=== PATIENT | male | born 1940 | race Caucasian/White ===

== ENCOUNTER 2017-12-27 00:40 | Emergency (ER) | payer MEDICARE ==
[2017-12-27 01:30] LABS: CREATININE 1.3 mg/dL (0.5-1.5); POTASSIUM 3.7 mmol/L (3.5-5.1)
[2017-12-27 01:34] LABS: ALBUMIN 3.8 g/dL (3.5-5.0); BILIRUBIN,TOTAL 0.5 mg/dL (0.2-1.0); TOTAL PROTEIN, SERUM 7.7 g/dL (6.0-8.3)
[2017-12-27 01:43] LABS: EOSINOPHILS % (AUTO) 6.7 % (0.0-8.0); HEMATOCRIT 36.8 % (42-54); LYMPHOCYTES % (AUTO) 36.9 % (21.0-51.0); MEAN CORPUSCULAR HEMOGLOBIN 28.3 pg (27.0-33.0); MEAN CORPUSCULAR HGB CONC 33.3 g/dL (32.0-36.0); MONOCYTES % (AUTO) 8.4 % (3.0-13.0); PLATELET COUNT (AUTO) 210 K/uL (130-400); RED BLOOD CELL COUNT(AUTO) 4.32 MIL/uL (4.50-6.20); RED CELL DISTRIBUTION WIDTH 14.7 % (11.0-15.5); WHITE BLOOD COUNT (AUTO) 9.2 K/uL (4.8-10.8)
[2017-12-27 03:07] LABS: APPEARANCE,URINE Cloudy (CLEAR); BILIRUBIN,URINE Negative (NEGATIVE); COLOR,URINE Yellow (YELLOW); GLUCOSE, URINE (UA) Negative (NEGATIVE); KETONES,URINE Negative (NEGATIVE); LEUKOCYTE ESTERASE ,URINE Large (NEGATIVE); NITRATE,URINE Positive (NEGATIVE); OCCULT BLOOD,URINE Trace (NEGATIVE); PROTEIN,URINE Negative (NEGATIVE); UROBILINOGEN,URINE 0.2 mg/dL (0.2-1.0)
[2017-12-27 03:12] LABS: BACTERIA,URINE Many /HPF (None Seen); RBC,URINE 0-1 /HPF (0-1); WBC,URINE TNTC /HPF (0-1)
[2017-12-27 03:14] LABS: AMPHET/METH SCREEN,URINE NEGATIVE (NEGATIVE); BARBITURATE SCREEN, URINE NEGATIVE (NEGATIVE); BENZODIAZEPINES SCREEN,URINE POSITIVE (NEGATIVE); CANNABINOID SCREEN,URINE NEGATIVE (NEGATIVE); COCAINE SCREEN,URINE NEGATIVE (NEGATIVE); OPIATE SCREEN,URINE NEGATIVE (NEGATIVE); PHENCYCLIDINE SCREEN,URINE NEGATIVE (NEGATIVE)
[2017-12-27] MEDS ORDERED: CEFTRIAXONE SODIUM 1 GM ONE (03:28)
[2017-12-27] MEDS ORDERED: SODIUM CHLORIDE 0.9% 50 ML IV ONE (03:28)
== END 2017-12-27 04:35 | disposition home or self-care (01) ==
LOC: EDH 00:40
DX: N30.00 Acute cystitis without hematuria (principal); R53.1 Weakness; R06.00 Dyspnea, unspecified; R20.2 Paresthesia of skin; F41.9 Anxiety disorder, unspecified; I25.10 Atherosclerotic heart disease of native coronary artery without angina pectoris; E78.5 Hyperlipidemia, unspecified; M19.90 Unspecified osteoarthritis, unspecified site; Z98.890 Other specified postprocedural states; Z91.048 Other nonmedicinal substance allergy status
CPT/HCPCS: 36415; 71045; 80053; 80305; 81001; 83690; 83735; 84484; 85025; 87077; 87088; 87186; 93005; 96374; 99285; J0696

== ENCOUNTER 2017-12-27 16:21 | Emergency (ER) | payer MEDICARE ==
[2017-12-27 17:30] LABS: EOSINOPHILS % (AUTO) 3.5 % (0.0-8.0); HEMATOCRIT 35.2 % (42-54); LYMPHOCYTES % (AUTO) 24.1 % (21.0-51.0); MEAN CORPUSCULAR HEMOGLOBIN 28.6 pg (27.0-33.0); MEAN CORPUSCULAR VOLUME 83.9 fL (79-99); MONOCYTES % (AUTO) 8.4 % (3.0-13.0); NUCLEATED RED BLOOD CELLS 0.1 % (0.0-0.19); PLATELET COUNT (AUTO) 224 K/uL (130-400); RED BLOOD CELL COUNT(AUTO) 4.19 MIL/uL (4.50-6.20); RED CELL DISTRIBUTION WIDTH 14.5 % (11.0-15.5); WHITE BLOOD COUNT (AUTO) 8.9 K/uL (4.8-10.8)
[2017-12-27 17:53] LABS: INR 0.97 (0.85-1.15); PARTIAL THROMBOPLASTIN TIME 27.6 SEC (26.3-35.5); PROTHROMBIN TIME 10.2 SEC (9.6-11.6)
[2017-12-27 17:55] LABS: APPEARANCE,URINE Cloudy (CLEAR); BILIRUBIN,URINE Negative (NEGATIVE); COLOR,URINE Yellow (YELLOW); GLUCOSE, URINE (UA) Negative (NEGATIVE); KETONES,URINE Negative (NEGATIVE); LEUKOCYTE ESTERASE ,URINE Large (NEGATIVE); NITRATE,URINE Negative (NEGATIVE); OCCULT BLOOD,URINE Trace (NEGATIVE); PH,URINE 5.5 (5.0-8.0); PROTEIN,URINE Negative (NEGATIVE); UROBILINOGEN,URINE 0.2 mg/dL (0.2-1.0)
[2017-12-27 18:07] LABS: BACTERIA,URINE Moderate /HPF (None Seen); RBC,URINE 0-1 /HPF (0-1); WBC,URINE TNTC /HPF (0-1)
[2017-12-27 18:20] LABS: POTASSIUM 4.4 mmol/L (3.5-5.1)
[2017-12-27 18:26] LABS: ALBUMIN 3.6 g/dL (3.5-5.0); BILIRUBIN,TOTAL 0.4 mg/dL (0.2-1.0); TOTAL PROTEIN, SERUM 7.5 g/dL (6.0-8.3)
== END 2017-12-27 18:41 | disposition home or self-care (01) ==
LOC: EDH 16:21
DX: E86.0 Dehydration (principal); N39.0 Urinary tract infection, site not specified; R00.2 Palpitations; F41.9 Anxiety disorder, unspecified; I25.10 Atherosclerotic heart disease of native coronary artery without angina pectoris; E78.5 Hyperlipidemia, unspecified; I10 Essential (primary) hypertension; M19.90 Unspecified osteoarthritis, unspecified site; Z98.890 Other specified postprocedural states; Z91.048 Other nonmedicinal substance allergy status
CPT/HCPCS: 36415; 80053; 82550; 85025; 85610; 85730; 93005

== ENCOUNTER 2017-12-28 22:03 | Observation (INO) | payer MEDICARE ==
[~2017-12-28] VITALS: Ht 193 cm; Wt 117.5 kg
[2017-12-28 22:48] LABS: BASOPHILS % (AUTO) 0.9 % (0.0-5.0); EOSINOPHILS % (AUTO) 5.2 % (0.0-8.0); HEMATOCRIT 34.6 % (42-54); LYMPHOCYTES % (AUTO) 28.7 % (21.0-51.0); MEAN CORPUSCULAR HEMOGLOBIN 28.2 pg (27.0-33.0); MEAN CORPUSCULAR HGB CONC 33.5 g/dL (32.0-36.0); MEAN CORPUSCULAR VOLUME 84.3 fL (79-99); NEUTROPHILS % (AUTO) 57.2 % (40.0-77.0); PLATELET COUNT (AUTO) 226 K/uL (130-400); RED CELL DISTRIBUTION WIDTH 14.7 % (11.0-15.5); WHITE BLOOD COUNT (AUTO) 8.9 K/uL (4.8-10.8)
[2017-12-28 23:00] LABS: CREATININE 1.1 mg/dL (0.5-1.5); POTASSIUM 3.7 mmol/L (3.5-5.1)
[2017-12-28 23:04] LABS: ALBUMIN 3.6 g/dL (3.5-5.0); BILIRUBIN,TOTAL 0.4 mg/dL (0.2-1.0); TOTAL PROTEIN, SERUM 7.3 g/dL (6.0-8.3)
[2017-12-29 00:31] LABS: APPEARANCE,URINE Clear (CLEAR); BILIRUBIN,URINE Negative (NEGATIVE); COLOR,URINE Yellow (YELLOW); GLUCOSE, URINE (UA) Negative (NEGATIVE); KETONES,URINE Negative (NEGATIVE); LEUKOCYTE ESTERASE ,URINE Moderate (NEGATIVE); NITRATE,URINE Negative (NEGATIVE); OCCULT BLOOD,URINE Negative (NEGATIVE); PROTEIN,URINE Negative (NEGATIVE); UROBILINOGEN,URINE 0.2 mg/dL (0.2-1.0)
[2017-12-29 00:46] LABS: BACTERIA,URINE None Seen /HPF (None Seen); MUCUS,URINE Few LPF (None Seen); RBC,URINE None Seen /HPF (0-1); SQUAMOUS EPITHELIAL CELL,UR Rare /HPF (0-2)
[2017-12-29 01:38] VITALS: BP 154/86
[2017-12-29] MEDS ORDERED: TRAZODONE HCL 50 MG TAB PO SCH (02:30)
[2017-12-29] MEDS ORDERED: ASPI-1197 PO (02:32)
[2017-12-29] MEDS ORDERED: PRAV80TA21 PO (02:32)
[2017-12-29] MEDS ORDERED: TAMS-1 PO (02:32)
[2017-12-29] MEDS ORDERED: SPIR25TA6 PO (02:32)
[2017-12-29] MEDS ORDERED: TRAZ150T79 PO (02:32)
[2017-12-29] MEDS ORDERED: METO25TA6 PO (02:32)
[2017-12-29] MEDS ORDERED: DOCU100C33 PO (02:32)
[2017-12-29] MEDS ORDERED: CETI10TA57 PO (02:32)
[2017-12-29] MEDS ORDERED: MIRT45TA83 PO (02:32)
[2017-12-29 03:00] VITALS: BP 161/81
[2017-12-29] MEDS: CEFTRIAXONE SODIUM 1 GM IVP SCH (03:59)
[2017-12-29] MEDS: DEXTROSE 5 %-0.45 % NACL 1,000 ML IV SCH ×2 (04:00→23:45)
[2017-12-29] MEDS ORDERED: MECLIZINE HCL 12.5 MG TABLET PO PRN (07:15)
[2017-12-29 08:00] VITALS: BP 161/92
[2017-12-29] MEDS: ASPIRIN 81MG TAB.CHEW PO SCH (08:57)
[2017-12-29] MEDS: METOPROLOL TARTRATE 25 MG TAB PO SCH ×2 (08:57→22:46)
[2017-12-29] MEDS: SPIRONOLACTONE 25 MG TAB PO SCH (08:57)
[2017-12-29 11:00] VITALS: BP 126/64
[2017-12-29] MEDS ORDERED: LACTULOSE 20 GM/30 ML UDCUP PO PRN (11:00)
[2017-12-29] MEDS ORDERED: CETIRIZINE HCL 5 MG TABLET PO SCH (12:00)
[2017-12-29] MEDS ORDERED: DOCUSATE SODIUM 100 MG CAP PO SCH (12:00)
[2017-12-29] MEDS ORDERED: MIRTAZAPINE 15 MG TABLET PO SCH (12:00)
[2017-12-29 16:30] VITALS: BP 158/89
[2017-12-29 19:05] VITALS: BP 146/82
[2017-12-29] MEDS ORDERED: ALPRAZOLAM 0.5 MG TABLET PO PRN (20:30)
[2017-12-29] MEDS ORDERED: ATORVASTATIN CALCIUM 20 MG TABLET PO SCH (21:00)
[2017-12-29] MEDS ORDERED: TAMSULOSIN HCL 0.4 MG CAP.ER.24H PO SCH (21:00)
[2017-12-30 00:10] VITALS: BP 141/69
[2017-12-30] MEDS: CEFTRIAXONE SODIUM 1 GM IVP SCH (03:05)
[2017-12-30 04:10] VITALS: BP 137/94
[2017-12-30 08:00] VITALS: BP 152/84
[2017-12-30] MEDS: SPIRONOLACTONE 25 MG TAB PO SCH (09:32)
[2017-12-30] MEDS: ASPIRIN 81MG TAB.CHEW PO SCH (09:32)
[2017-12-30] MEDS: METOPROLOL TARTRATE 25 MG TAB PO SCH (09:32)
[2017-12-30 12:00] VITALS: BP 159/87
== END 2017-12-30 12:49 | disposition home or self-care (01) ==
LOC: EDH 22:03 → EDHIP 12-29 00:53 → 3BH 12-29 01:30 → EDHIP 12-29 01:39 → 3BH 12-29 01:40
PROVIDERS: ADMIT Internal Medicine; ATTEND Internal Medicine
DX: H81.10 Benign paroxysmal vertigo, unspecified ear (principal); E86.0 Dehydration; N39.0 Urinary tract infection, site not specified; E78.5 Hyperlipidemia, unspecified; I25.10 Atherosclerotic heart disease of native coronary artery without angina pectoris; I10 Essential (primary) hypertension; F41.1 Generalized anxiety disorder
CPT/HCPCS: 36415; 70450; 71045; 80053; 82550; 83605; 84484; 85025; 87040; 87088; 93005; 96361; 96374; 96375; 97116; 97161; 99285; A4218 ×2; G0378 ×36; G8978; G8979; G8980; G8981; G8982; G8983; J0696 ×2; J7042 ×2

== ENCOUNTER → 2018-09-17 | Outpatient (CLI) | payer MEDICARE ==
[~2018-09-17] MED LIST: ASPI-1197 PO; CETI10TA57 PO; DOCU100C33 PO; METO25TA6 PO; MIRT45TA83 PO; PRAV80TA21 PO; SPIR25TA6 PO; TAMS-1 PO; TRAZ150T79 PO
== END | disposition home or self-care (01) ==
LOC: RAH 09:17
PROVIDERS: ATTEND Internal Medicine
DX: I11.0 Hypertensive heart disease with heart failure (principal); I50.23 Acute on chronic systolic (congestive) heart failure; I35.8 Other nonrheumatic aortic valve disorders; I25.10 Atherosclerotic heart disease of native coronary artery without angina pectoris
CPT/HCPCS: 93306

== ENCOUNTER 2018-09-21 18:59 | Emergency (ER) | payer MEDICARE ==
[2018-09-21 19:40] LABS: BASOPHILS % (AUTO) 1.1 % (0.0-5.0); HEMATOCRIT 38.6 % (42-54); MEAN CORPUSCULAR HGB CONC 33.8 g/dL (32.0-36.0); MEAN CORPUSCULAR VOLUME 85.9 fL (79-99); MONOCYTES % (AUTO) 7.6 % (3.0-13.0); NEUTROPHILS % (AUTO) 65.3 % (40.0-77.0); PLATELET COUNT (AUTO) 233 K/uL (130-400); RED BLOOD CELL COUNT(AUTO) 4.49 MIL/uL (4.50-6.20); WHITE BLOOD COUNT (AUTO) 10.6 K/uL (4.8-10.8)
[2018-09-21 19:59] LABS: CREATININE 1.7 mg/dL (0.5-1.5); POTASSIUM 4.5 mmol/L (3.5-5.1)
[2018-09-21 20:04] LABS: ALBUMIN 3.4 g/dL (3.5-5.0); BILIRUBIN,DIRECT 0.1 mg/dL (0.0-0.3); BILIRUBIN,TOTAL 0.3 mg/dL (0.2-1.0); TOTAL PROTEIN, SERUM 7.2 g/dL (6.0-8.3)
[2018-09-21 20:05] LABS: B-TYPE NATRIURETIC PEPTIDE 22 pg/mL (0-100)
[2018-09-21 22:31] LABS: APPEARANCE,URINE Clear (CLEAR); BILIRUBIN,URINE Negative (NEGATIVE); COLOR,URINE Yellow (YELLOW); GLUCOSE, URINE (UA) Negative (NEGATIVE); KETONES,URINE Negative (NEGATIVE); LEUKOCYTE ESTERASE ,URINE Small (NEGATIVE); NITRATE,URINE Negative (NEGATIVE); OCCULT BLOOD,URINE Negative (NEGATIVE); PH,URINE 5.5 (5.0-8.0); PROTEIN,URINE Negative (NEGATIVE); UROBILINOGEN,URINE 0.2 mg/dL (0.2-1.0)
[2018-09-21 22:56] LABS: BACTERIA,URINE None Seen /HPF (None Seen); RBC,URINE 0-1 /HPF (0-1)
[2018-09-21] MEDS ORDERED: SODIUM CHLORIDE 0.9% 1000ML 1,000 ML IV ONE (23:06)
[2018-09-21] MEDS ORDERED: CEFTRIAXONE SODIUM 1 GM ONE (23:36)
== END 2018-09-22 00:13 | disposition home or self-care (01) ==
LOC: EDH 18:59
DX: T67.5XXA Heat exhaustion, unspecified, initial encounter (principal); N30.00 Acute cystitis without hematuria; R53.1 Weakness; I10 Essential (primary) hypertension; E78.5 Hyperlipidemia, unspecified; M19.90 Unspecified osteoarthritis, unspecified site; I25.10 Atherosclerotic heart disease of native coronary artery without angina pectoris; F41.9 Anxiety disorder, unspecified; Z88.1 Allergy status to other antibiotic agents; Z88.8 Allergy status to other drugs, medicaments and biological substances; X58.XXXA Exposure to other specified factors, initial encounter; Y93.89 Activity, other specified; Y92.89 Other specified places as the place of occurrence of the external cause; Y99.8 Other external cause status
CPT/HCPCS: 36415; 71045; 80048; 80076; 81001; 82550; 83880; 84484 ×2; 85025; 87077; 87088; 87186; 93005 ×2; 96374; 99285; J0696; J7030

== ENCOUNTER → 2018-11-10 | Outpatient (CLI) | payer MEDICARE | END | disposition home or self-care (01) | LOC: OIH 11:00 | PROVIDERS: ATTEND Internal Medicine | DX: J44.9 Chronic obstructive pulmonary disease, unspecified (principal); I70.0 Atherosclerosis of aorta; M47.815 Spondylosis without myelopathy or radiculopathy, thoracolumbar region | CPT/HCPCS: 71046 ==

== ENCOUNTER → 2018-11-25 | Outpatient (CLI) | payer MEDICARE ==
[~2018-11-25] MED LIST changes: +ALBUTEROL SULFATE 0.083% 2.5 MG/3 ML INH IH ONE
== END | disposition home or self-care (01) ==
LOC: RESP 10:08
PROVIDERS: ATTEND Internal Medicine
DX: J44.9 Chronic obstructive pulmonary disease, unspecified (principal)
CPT/HCPCS: 94060; 94727; 94729

== ENCOUNTER → 2019-09-16 | Outpatient (CLI) | payer MEDICARE ==
[~2019-09-16] MED LIST changes: -ALBUTEROL SULFATE 0.083% 2.5 MG/3 ML INH IH ONE
== END | disposition home or self-care (01) ==
LOC: RAH 11:44
PROVIDERS: ATTEND Internal Medicine
DX: J84.9 Interstitial pulmonary disease, unspecified (principal); M47.814 Spondylosis without myelopathy or radiculopathy, thoracic region; M40.294 Other kyphosis, thoracic region; I50.9 Heart failure, unspecified
CPT/HCPCS: 71046

== ENCOUNTER → 2020-10-19 | Outpatient (CLI) | payer OTHER | END | disposition home or self-care (01) | LOC: OIH 15:02 | PROVIDERS: ATTEND Internal Medicine | DX: S93.692A Other sprain of left foot, initial encounter (principal); X58.XXXA Exposure to other specified factors, initial encounter; Y93.89 Activity, other specified; Y92.89 Other specified places as the place of occurrence of the external cause; Y99.8 Other external cause status | CPT/HCPCS: 73630 ==

== ENCOUNTER 2021-04-28 18:17 | Observation (INO) | payer OTHER ==
[~2021-04-28] VITALS: Ht 177.8 cm; Wt 90.7 kg
[2021-04-28 20:04] LABS: BASOPHILS % (AUTO) 0.9 % (0.0-5.0); EOSINOPHILS % (AUTO) 8.6 % (0.0-8.0); HEMATOCRIT 33.9 % (42-54); LYMPHOCYTES % (AUTO) 34.9 % (21.0-51.0); MEAN CORPUSCULAR HEMOGLOBIN 28.3 pg (27.0-33.0); MEAN CORPUSCULAR HGB CONC 31.6 g/dL (32.0-36.0); MEAN CORPUSCULAR VOLUME 89.7 fL (79-99); NEUTROPHILS % (AUTO) 44.3 % (40.0-77.0); PLATELET COUNT (AUTO) 181 K/uL (130-400); RED BLOOD CELL COUNT(AUTO) 3.78 MIL/uL (4.50-6.20); WHITE BLOOD COUNT (AUTO) 7.8 K/uL (4.8-10.8)
[2021-04-28 20:18] LABS: CARBON DIOXIDE 29 mmol/L (21-32); CHLORIDE 104 mmol/L (101-111); GLOMERULAR FILTR. RATE CALC 34 mL/min (>60); GLUCOSE,RANDOM 100 mg/dL (70-105); POTASSIUM 4.4 mmol/L (3.5-5.1); SODIUM SERUM 142 mmol/L (136-145); UREA NITROGEN, BLOOD 29 mg/dL (7-18)
[2021-04-28 20:19] LABS: INR 1.05 (0.85-1.15); PROTHROMBIN TIME 11.4 SEC (9.6-11.6)
[2021-04-28 20:22] LABS: ALANINE AMINOTRANSFERASE 29 U/L (12-78); ALBUMIN 3.3 g/dL (3.5-5.0); ASPARTATE AMINOTRANSFERASE 26 U/L (10-37); BILIRUBIN,TOTAL 0.4 mg/dL (0.2-1.0); LIPASE < 50 U/L (114-286); TOTAL PROTEIN, SERUM 7.1 g/dL (6.0-8.3)
[2021-04-28 20:27] LABS: APPEARANCE,URINE CLEAR (CLEAR); BILIRUBIN,URINE NEGATIVE (NEGATIVE); COLOR,URINE YELLOW (YELLOW); GLUCOSE, URINE (UA) NEGATIVE (NEGATIVE); KETONES,URINE NEGATIVE (NEGATIVE); LEUKOCYTE ESTERASE ,URINE LARGE (NEGATIVE); NITRATE,URINE NEGATIVE (NEGATIVE); OCCULT BLOOD,URINE SMALL (NEGATIVE); PROTEIN,URINE NEGATIVE (NEGATIVE); UROBILINOGEN,URINE 0.2 mg/dL (0.2-1.0)
[2021-04-28 20:44] LABS: B-TYPE NATRIURETIC PEPTIDE 68 pg/mL (0-100)
[2021-04-28 20:51] LABS: BACTERIA,URINE Few /HPF (None Seen); MUCUS,URINE Few LPF (None Seen); SQUAMOUS EPITHELIAL CELL,UR Moderate /HPF (0-2)
[2021-04-28] MEDS ORDERED: CEFTRIAXONE 1G VIAL IVP ONE (21:00)
[2021-04-28] MEDS ORDERED: CLINDAMYCIN IVPB 900MG/50ML 50 ML IV ONE ×2 (21:00→21:02)
[2021-04-28] MEDS ORDERED: FUROSEMIDE 20MG VIAL IV ONE (21:00)
[2021-04-28] MEDS ORDERED: FUROSEMIDE 20MG VIAL ONE (21:02)
[2021-04-28] MEDS ORDERED: CEFTRIAXONE 1G VIAL ONE (21:02)
[2021-04-29 01:35] VITALS: BP 118/61
[2021-04-29 03:49] VITALS: BP 146/65
[2021-04-29 05:45] LABS: HEMATOCRIT 34.4 % (42-54); MEAN CORPUSCULAR HEMOGLOBIN 28.6 pg (27.0-33.0); MEAN CORPUSCULAR HGB CONC 32.3 g/dL (32.0-36.0); MEAN CORPUSCULAR VOLUME 88.7 fL (79-99); RED BLOOD CELL COUNT(AUTO) 3.88 MIL/uL (4.50-6.20); WHITE BLOOD COUNT (AUTO) 9.7 K/uL (4.8-10.8)
[2021-04-29 06:07] LABS: ALBUMIN 3.1 g/dL (3.5-5.0); BILIRUBIN,TOTAL 0.3 mg/dL (0.2-1.0); CREATININE 1.8 mg/dL (0.5-1.5); POTASSIUM 3.9 mmol/L (3.5-5.1); TOTAL PROTEIN, SERUM 6.9 g/dL (6.0-8.3)
[2021-04-29] MEDS: FUROSEMIDE 40MG VIAL IVP SCH ×3 (06:49→21:17)
[2021-04-29 07:45] VITALS: BP 127/62
[2021-04-29] MEDS: ENOXAPARIN SODIUM 30 MG/0.3 ML SQ SCH (08:40)
[2021-04-29] MEDS ORDERED: CEFTRIAXONE 1G VIAL 1 GM in 0.9%NACL 50ML 50 ML IVP SCH (09:00)
[2021-04-29] MEDS: CEFTRIAXONE 1G VIAL IVP SCH (10:34)
[2021-04-29 11:45] VITALS: BP 127/47
[2021-04-29] MEDS ORDERED: FURO40TA5 PO (18:27)
[2021-04-29] MEDS ORDERED: MULT-1082 PO (18:27)
[2021-04-29] MEDS ORDERED: OXYC1TAB12 PO (18:27)
[2021-04-29] MEDS ORDERED: ALPR-412 PO (18:27)
[2021-04-29] MEDS ORDERED: MELA10TA PO (18:27)
[2021-04-29] MEDS ORDERED: BUPR-49 PO (18:27)
[2021-04-29] MEDS ORDERED: NIZO215C TP (18:27)
[2021-04-29] MEDS ORDERED: TRAZODONE HCL 50 MG TAB PO SCH (20:00)
[2021-04-29] MEDS ORDERED: **HM**(Melatonin 10 MG) PO PRN ×2 (20:00→20:30)
[2021-04-29 20:08] VITALS: BP 103/56
[2021-04-29] MEDS ORDERED: ATORVASTATIN 20 MG TABLET PO SCH (21:00)
[2021-04-29] MEDS ORDERED: TAMSULOSIN HCL 0.4 MG CAP.ER.24H PO SCH (21:00)
[2021-04-29] MEDS: ALPRAZOLAM 1 MG TAB PO SCH (21:15)
[2021-04-29] MEDS: OXYCODONE/ACETAMIN 5/325MG TAB PO SCH (21:16)
[2021-04-29] MEDS: METOPROLOL TARTRATE 25 MG TAB PO SCH (21:17)
[2021-04-29] MEDS: OXYCODONE HCL 5 MG TAB PO SCH (21:17)
[2021-04-29] MEDS: KETOCONAZOLE 15 GM CREAM.GM. TP SCH (21:18)
[2021-04-29 23:31] VITALS: BP 103/54
[2021-04-30] MEDS ORDERED: MAGNESIUM CITRATE 296 ML SOLUTION PO PRN (00:30)
[2021-04-30] MEDS ORDERED: LACT10SO76 PO (00:33)
[2021-04-30] MEDS ORDERED: MAGN296S76 PO (00:33)
[2021-04-30] MEDS ORDERED: POTA-10 PO (00:33)
[2021-04-30 03:55] VITALS: BP 100/51
[2021-04-30 05:24] LABS: ALBUMIN 2.9 g/dL (3.5-5.0); BILIRUBIN,TOTAL 0.2 mg/dL (0.2-1.0); CREATININE 1.8 mg/dL (0.5-1.5); TOTAL PROTEIN, SERUM 6.7 g/dL (6.0-8.3)
[2021-04-30 05:34] LABS: BASOPHILS % (AUTO) 1.1 % (0.0-5.0); EOSINOPHILS % (AUTO) 9.5 % (0.0-8.0); HEMATOCRIT 34.9 % (42-54); LYMPHOCYTES % (AUTO) 33.5 % (21.0-51.0); MEAN CORPUSCULAR HEMOGLOBIN 28.5 pg (27.0-33.0); MEAN CORPUSCULAR HGB CONC 31.8 g/dL (32.0-36.0); MEAN CORPUSCULAR VOLUME 89.5 fL (79-99); MONOCYTES % (AUTO) 9.6 % (3.0-13.0); NEUTROPHILS % (AUTO) 46.2 % (40.0-77.0); PLATELET COUNT (AUTO) 175 K/uL (130-400); WHITE BLOOD COUNT (AUTO) 7.5 K/uL (4.8-10.8)
[2021-04-30] MEDS: FUROSEMIDE 40MG VIAL IVP SCH (06:30)
[2021-04-30 08:00] VITALS: BP 123/56
[2021-04-30] MEDS: CEFTRIAXONE 1G VIAL IVP SCH (08:42)
[2021-04-30] MEDS: ALPRAZOLAM 1 MG TAB PO SCH (08:43)
[2021-04-30] MEDS: ENOXAPARIN SODIUM 30 MG/0.3 ML SQ SCH (08:43)
[2021-04-30] MEDS: OXYCODONE HCL 5 MG TAB PO SCH ×2 (08:44→13:00)
[2021-04-30] MEDS: METOPROLOL TARTRATE 25 MG TAB PO SCH (08:44)
[2021-04-30] MEDS: OXYCODONE/ACETAMIN 5/325MG TAB PO SCH ×2 (08:45→13:00)
[2021-04-30] MEDS: KETOCONAZOLE 15 GM CREAM.GM. TP SCH (08:46)
[2021-04-30] MEDS ORDERED: MULTIVITAMIN TABLET PO SCH (09:00)
[2021-04-30] MEDS ORDERED: POTASSIUM CHLORIDE 10MEQ SR TAB PO SCH (09:00)
[2021-04-30] MEDS ORDERED: BUPROPION HCL 150 MG PO SCH (09:00)
[2021-04-30] MEDS ORDERED: LACTULOSE 20 GM/30 ML UDCUP PO SCH (09:00)
[2021-04-30] MEDS ORDERED: MIRTAZAPINE 15 MG TABLET PO SCH (12:00)
== END 2021-04-30 13:31 | disposition left against medical advice (07) ==
LOC: EDH 18:17 → EDHIP 21:48 → INTOOBSV 21:48 → 3CH 04-29 00:18
PROVIDERS: ADMIT Internal Medicine; ATTEND Internal Medicine
DX: L03.115 Cellulitis of right lower limb (principal); Z20.822 Contact with and (suspected) exposure to COVID-19; L89.159 Pressure ulcer of sacral region, unspecified stage; I11.0 Hypertensive heart disease with heart failure; I50.9 Heart failure, unspecified; N39.0 Urinary tract infection, site not specified; J44.9 Chronic obstructive pulmonary disease, unspecified; E78.5 Hyperlipidemia, unspecified; N40.0 Benign prostatic hyperplasia without lower urinary tract symptoms; N28.9 Disorder of kidney and ureter, unspecified; R91.8 Other nonspecific abnormal finding of lung field; Z96.659 Presence of unspecified artificial knee joint; Z99.3 Dependence on wheelchair; Z79.899 Other long term (current) drug therapy
CPT/HCPCS: 36415 ×3; 71045; 80053 ×3; 81001; 83605; 83690; 83880; 84443; 84484; 85025 ×2; 85027; 85610; 87040 ×2; 87077; 87088; 87186; 87635; 93005; 93970; 96365; 96366; 96372 ×2; 96375; 97039 ×2; 97161; 99285; C9803; G0378 ×7; J0696 ×3; J1650 ×2; J1940 ×5; J3490

== ENCOUNTER → 2021-08-16 | Outpatient (CLI) | payer OTHER ==
[~2021-08-16] MED LIST changes: +ALPR-412 PO; -ASPI-1197 PO; +BUPR-49 PO; -CETI10TA57 PO; -DOCU100C33 PO; +FURO40TA5 PO; +LACT10SO76 PO; +MAGN296S76 PO; +MELA10TA PO; +MULT-1082 PO; +NIZO215C TP; +OXYC1TAB12 PO; +POTA-10 PO; -SPIR25TA6 PO
== END | disposition home or self-care (01) ==
LOC: RAH 09:12
PROVIDERS: ATTEND Internal Medicine
DX: M85.80 Other specified disorders of bone density and structure, unspecified site (principal); G56.21 Lesion of ulnar nerve, right upper limb; M79.641 Pain in right hand
CPT/HCPCS: 73120

== ENCOUNTER 2021-10-29 12:04 | Emergency (ER) | payer OTHER ==
[~2021-10-29] VITALS: Ht 193 cm; Wt 115.7 kg
[~2021-10-29 12:04] MED LIST changes: -POTA-10 PO; +POTA-200 PO
[2021-10-29 12:32] VITALS: BP 129/60
[2021-10-29 12:50] LABS: APPEARANCE,URINE CLEAR (CLEAR); BILIRUBIN,URINE NEGATIVE (NEGATIVE); COLOR,URINE YELLOW (YELLOW); GLUCOSE, URINE (UA) NEGATIVE (NEGATIVE); KETONES,URINE NEGATIVE (NEGATIVE); LEUKOCYTE ESTERASE ,URINE LARGE (NEGATIVE); NITRATE,URINE POSITIVE (NEGATIVE); OCCULT BLOOD,URINE TRACE-INTACT (NEGATIVE); PH,URINE 6.5 (5.0-8.0); PROTEIN,URINE NEGATIVE (NEGATIVE); UROBILINOGEN,URINE 0.2 mg/dL (0.2-1.0)
[2021-10-29 12:54] LABS: BACTERIA,URINE Few /HPF (None Seen); RBC,URINE 0-1 /HPF (0-1); SQUAMOUS EPITHELIAL CELL,UR Rare /HPF (0-2)
[2021-10-29] MEDS ORDERED: LIDOCAINE HCL 1% 20 ML VIAL ONE (13:01)
[2021-10-29] MEDS ORDERED: LIDOCAINE HCL 2% VISCOUS 15 ML UDCUP ONE (13:26)
[2021-10-29] MEDS ORDERED: BACITRACIN 1 EACH PACKET TP ONE (14:12)
[2021-10-29] MEDS ORDERED: BACI30OI6 TP (14:25)
[2021-10-29] MEDS ORDERED: LEVO-70 PO (14:25)
[2021-10-29] MEDS ORDERED: BACITRACIN 28.4 GM OINT TP ONE (14:30)
== END 2021-10-29 14:34 | disposition home or self-care (01) ==
LOC: EDH 12:04
DX: N47.1 Phimosis (principal); F41.9 Anxiety disorder, unspecified; F03.90 Unspecified dementia, unspecified severity, without behavioral disturbance, psychotic disturbance, mood disturbance, and anxiety; E78.00 Pure hypercholesterolemia, unspecified; I11.0 Hypertensive heart disease with heart failure; I50.9 Heart failure, unspecified; Z98.890 Other specified postprocedural states; Z88.1 Allergy status to other antibiotic agents; Z79.899 Other long term (current) drug therapy
CPT/HCPCS: 54450; 81001; 87077; 87088; 87186

== ENCOUNTER 2021-11-13 09:37 | Emergency (ER) | payer OTHER ==
[~2021-11-13] VITALS: Ht 193 cm; Wt 120.2 kg
[~2021-11-13 09:37] MED LIST changes: +BACI30OI6 TP; +LEVO-70 PO
[2021-11-13 10:25] LABS: BASOPHILS % (AUTO) 0.9 % (0.0-5.0); EOSINOPHILS % (AUTO) 7.8 % (0.0-8.0); HEMATOCRIT 36.4 % (42-54); LYMPHOCYTES % (AUTO) 23.2 % (21.0-51.0); MEAN CORPUSCULAR HEMOGLOBIN 28.5 pg (27.0-33.0); MEAN CORPUSCULAR HGB CONC 32.4 g/dL (32.0-36.0); MEAN CORPUSCULAR VOLUME 87.9 fL (79-99); MONOCYTES % (AUTO) 9.2 % (3.0-13.0); NEUTROPHILS % (AUTO) 58.6 % (40.0-77.0); PLATELET COUNT (AUTO) 181 K/uL (130-400); RED BLOOD CELL COUNT(AUTO) 4.14 MIL/uL (4.50-6.20); RED CELL DISTRIBUTION WIDTH 14.5 % (11.0-15.5); WHITE BLOOD COUNT (AUTO) 9.5 K/uL (4.8-10.8)
[2021-11-13 10:45] LABS: ALBUMIN 3.6 g/dL (3.5-5.0); CREATININE 2.2 mg/dL (0.5-1.5); POTASSIUM 4.7 mmol/L (3.5-5.1)
[2021-11-13 10:52] LABS: B-TYPE NATRIURETIC PEPTIDE 63 pg/mL (0-100)
[2021-11-13 11:32] VITALS: BP 115/60
== END 2021-11-13 11:58 | disposition home or self-care (01) ==
LOC: EDH 09:37
DX: R60.0 Localized edema (principal); F41.9 Anxiety disorder, unspecified; I11.0 Hypertensive heart disease with heart failure; I50.9 Heart failure, unspecified; F03.90 Unspecified dementia, unspecified severity, without behavioral disturbance, psychotic disturbance, mood disturbance, and anxiety; F32.A Depression, unspecified; Z98.890 Other specified postprocedural states; Z79.899 Other long term (current) drug therapy; Z88.1 Allergy status to other antibiotic agents
CPT/HCPCS: 36415; 80053; 83880; 85025

== ENCOUNTER 2021-11-21 13:04 | Emergency (ER) | payer OTHER ==
[~2021-11-21] VITALS: Ht 193 cm; Wt 113.4 kg
[2021-11-21 14:00] LABS: BASOPHILS % (AUTO) 0.8 % (0.0-5.0); HEMATOCRIT 33.4 % (42-54); LYMPHOCYTES % (AUTO) 31.4 % (21.0-51.0); MEAN CORPUSCULAR HEMOGLOBIN 28.7 pg (27.0-33.0); MEAN CORPUSCULAR HGB CONC 33.2 g/dL (32.0-36.0); MEAN CORPUSCULAR VOLUME 86.3 fL (79-99); MONOCYTES % (AUTO) 10.2 % (3.0-13.0); NEUTROPHILS % (AUTO) 50.4 % (40.0-77.0); PLATELET COUNT (AUTO) 169 K/uL (130-400); RED BLOOD CELL COUNT(AUTO) 3.87 MIL/uL (4.50-6.20); RED CELL DISTRIBUTION WIDTH 14.3 % (11.0-15.5); WHITE BLOOD COUNT (AUTO) 8.3 K/uL (4.8-10.8)
[2021-11-21 14:12] LABS: CREATININE 2.4 mg/dL (0.5-1.5); POTASSIUM 4.1 mmol/L (3.5-5.1)
[2021-11-21 14:22] LABS: ALBUMIN 3.4 g/dL (3.5-5.0); TOTAL PROTEIN, SERUM 6.8 g/dL (6.0-8.3)
[2021-11-21] MEDS ORDERED: L.E.T. GEL 3ML SYG TP ONE ×2 (17:30)
[2021-11-21 19:00] LABS: APPEARANCE,URINE CLEAR (CLEAR); BILIRUBIN,URINE NEGATIVE (NEGATIVE); COLOR,URINE YELLOW (YELLOW); GLUCOSE, URINE (UA) NEGATIVE (NEGATIVE); KETONES,URINE NEGATIVE (NEGATIVE); LEUKOCYTE ESTERASE ,URINE NEGATIVE Leu/uL (NEGATIVE); NITRATE,URINE NEGATIVE (NEGATIVE); OCCULT BLOOD,URINE NEGATIVE (NEGATIVE); PROTEIN,URINE NEGATIVE (NEGATIVE); UROBILINOGEN,URINE 0.2 mg/dL (0.2-1.0)
[2021-11-21 19:07] LABS: BACTERIA,URINE RARE /HPF (None Seen); MUCUS,URINE RARE LPF (None Seen); SQUAMOUS EPITHELIAL CELL,UR RARE /HPF (0-2)
[2021-11-21 19:39] VITALS: BP 114/82
== END 2021-11-21 20:03 | disposition home or self-care (01) ==
LOC: EDH 13:04
DX: R33.9 Retention of urine, unspecified (principal); N13.8 Other obstructive and reflux uropathy; N47.1 Phimosis; I11.0 Hypertensive heart disease with heart failure; I50.9 Heart failure, unspecified; Z88.1 Allergy status to other antibiotic agents; Z79.899 Other long term (current) drug therapy
CPT/HCPCS: 36415; 51702; 76770; 80053; 81001; 85025; 93970

== ENCOUNTER 2021-12-19 11:38 | Emergency (ER) | payer OTHER ==
[~2021-12-19] VITALS: Ht 193 cm; Wt 117.9 kg
[~2021-12-19 11:38] MED LIST changes: +MAGN296S73 PO; -MAGN296S76 PO
[2021-12-19 12:48] LABS: APPEARANCE,URINE CLEAR (CLEAR); BILIRUBIN,URINE SMALL mg/dL (NEGATIVE); COLOR,URINE YELLOW (YELLOW); GLUCOSE, URINE (UA) NEGATIVE (NEGATIVE); KETONES,URINE NEGATIVE (NEGATIVE); LEUKOCYTE ESTERASE ,URINE LARGE Leu/uL (NEGATIVE); NITRATE,URINE POSITIVE (NEGATIVE); OCCULT BLOOD,URINE MODERATE (NEGATIVE); PROTEIN,URINE TRACE mg/dL (NEGATIVE); UROBILINOGEN,URINE 0.2 mg/dL (0.2-1.0)
[2021-12-19 12:59] LABS: BACTERIA,URINE Few /HPF (None Seen); WBC,URINE TNTC /HPF (0-1)
[2021-12-19] MEDS ORDERED: CEFU500T67 PO (13:04)
[2021-12-19] MEDS ORDERED: CEFTRIAXONE 1G VIAL IM ONE (13:30)
[2021-12-19 14:18] VITALS: BP 132/78
== END 2021-12-19 14:21 | disposition home or self-care (01) ==
LOC: EDH 11:38
DX: R33.9 Retention of urine, unspecified (principal); N39.0 Urinary tract infection, site not specified; I11.0 Hypertensive heart disease with heart failure; I50.9 Heart failure, unspecified; I25.2 Old myocardial infarction; Z98.890 Other specified postprocedural states; Z88.1 Allergy status to other antibiotic agents; Z79.899 Other long term (current) drug therapy
CPT/HCPCS: 99284; 87077; 87088; 87186; 81001; 96372; 51702; J0696

== ENCOUNTER 2021-12-28 09:51 | Emergency (ER) | payer OTHER ==
[~2021-12-28] VITALS: Ht 193 cm; Wt 99.8 kg
[~2021-12-28 09:51] MED LIST changes: +CEFU500T67 PO
[2021-12-28 10:05] VITALS: BP 117/59
== END 2021-12-28 10:19 | disposition home or self-care (01) ==
LOC: EDH 09:51
DX: T83.9XXA Unspecified complication of genitourinary prosthetic device, implant and graft, initial encounter (principal); I11.0 Hypertensive heart disease with heart failure; I50.9 Heart failure, unspecified; I25.2 Old myocardial infarction; Z98.890 Other specified postprocedural states; Z88.1 Allergy status to other antibiotic agents; Z79.899 Other long term (current) drug therapy
CPT/HCPCS: 51702

== ENCOUNTER 2022-03-03 10:08 | Emergency (ER) | payer OTHER ==
[~2022-03-03] VITALS: Ht 193 cm; Wt 115.7 kg
[2022-03-03 10:35] LABS: BASOPHILS % (AUTO) 0.6 % (0.0-5.0); EOSINOPHILS % (AUTO) 4.2 % (0.0-8.0); HEMATOCRIT 39.2 % (42-54); MEAN CORPUSCULAR HEMOGLOBIN 28.7 pg (27.0-33.0); MEAN CORPUSCULAR HGB CONC 32.9 g/dL (32.0-36.0); MEAN CORPUSCULAR VOLUME 87.3 fL (79-99); MONOCYTES % (AUTO) 7.3 % (3.0-13.0); NEUTROPHILS % (AUTO) 66.5 % (40.0-77.0); PLATELET COUNT (AUTO) 226 K/uL (130-400); RED BLOOD CELL COUNT(AUTO) 4.49 MIL/uL (4.50-6.20); RED CELL DISTRIBUTION WIDTH 14.2 % (11.0-15.5); WHITE BLOOD COUNT (AUTO) 11.3 K/uL (4.8-10.8)
[2022-03-03 10:45] LABS: CREATININE 2.3 mg/dL (0.5-1.5); POTASSIUM 3.8 mmol/L (3.5-5.1)
[2022-03-03 10:55] LABS: ALBUMIN 3.6 g/dL (3.5-5.0); TOTAL PROTEIN, SERUM 7.7 g/dL (6.0-8.3)
[2022-03-03 11:21] LABS: B-TYPE NATRIURETIC PEPTIDE 33 pg/mL (0-100)
[2022-03-03 11:45] LABS: APPEARANCE,URINE CLOUDY (CLEAR); BILIRUBIN,URINE NEGATIVE (NEGATIVE); COLOR,URINE YELLOW (YELLOW); GLUCOSE, URINE (UA) NEGATIVE (NEGATIVE); KETONES,URINE NEGATIVE (NEGATIVE); LEUKOCYTE ESTERASE ,URINE 500 Leu/uL (NEGATIVE); NITRATE,URINE 2+ (NEGATIVE); OCCULT BLOOD,URINE SMALL (NEGATIVE); PROTEIN,URINE 10 mg/dL (NEGATIVE); UROBILINOGEN,URINE 0.2 mg/dL (0.2-1.0)
[2022-03-03 11:54] LABS: BACTERIA,URINE FEW /HPF (None Seen); MUCUS,URINE RARE LPF (None Seen); SQUAMOUS EPITHELIAL CELL,UR RARE /HPF (0-2); WBC,URINE TNTC /HPF (0-1)
[2022-03-03] MEDS ORDERED: CEPH500B PO (12:03)
[2022-03-03 12:04] VITALS: BP 106/57
== END 2022-03-03 12:33 | disposition home or self-care (01) ==
LOC: EDH 10:08
DX: N39.0 Urinary tract infection, site not specified (principal); R42 Dizziness and giddiness; Z20.822 Contact with and (suspected) exposure to COVID-19; I10 Essential (primary) hypertension; I50.9 Heart failure, unspecified; I25.2 Old myocardial infarction; Z88.1 Allergy status to other antibiotic agents; Z79.899 Other long term (current) drug therapy
CPT/HCPCS: 99284; 71045; 87635; 84484; 80053; 83880; 85025; 87077; 87088; 87186; 87804 ×2; 81001; 36415; 93005; C9803

== ENCOUNTER 2022-06-15 09:31 | Emergency (ER) | payer OTHER ==
[~2022-06-15] VITALS: Ht 193 cm; Wt 99.1 kg
[~2022-06-15 09:31] MED LIST changes: +CEPH500B PO; -MELA10TA PO; +MELATONIN10 M1 PO
[2022-06-15 09:54] VITALS: BP 127/75
== END 2022-06-15 10:13 | disposition home or self-care (01) ==
LOC: EDH 09:31
DX: T83.031A Leakage of indwelling urethral catheter, initial encounter (principal); I11.0 Hypertensive heart disease with heart failure; I50.9 Heart failure, unspecified; I25.2 Old myocardial infarction; Z79.899 Other long term (current) drug therapy; Z88.1 Allergy status to other antibiotic agents; Y84.9 Medical procedure, unspecified as the cause of abnormal reaction of the patient, or of later complication, without mention of misadventure at the time of the procedure; Y92.89 Other specified places as the place of occurrence of the external cause
CPT/HCPCS: 99281

== ENCOUNTER 2022-09-15 11:09 | Inpatient (IN) | payer OTHER ==
[~2022-09-15] VITALS: Ht 193 cm; Wt 96.7 kg
[2022-09-15] MEDS ORDERED: LACTATED RINGERS 1000ML 1,000 ML IV ONE (12:00)
[2022-09-15] MEDS ORDERED: ONDANSETRON 4MG INJ IVP ONE (12:00)
[2022-09-15] MEDS ORDERED: MORPHINE 2 MG SYG IVP ONE ×2 (12:00→15:30)
[2022-09-15 15:56] LABS: BASOPHILS % (AUTO) 0.2 % (0.0-5.0); EOSINOPHILS % (AUTO) 0.5 % (0.0-8.0); HEMATOCRIT 33.7 % (42-54); LYMPHOCYTES % (AUTO) 8.5 % (21.0-51.0); MEAN CORPUSCULAR HEMOGLOBIN 27.9 pg (27.0-33.0); MEAN CORPUSCULAR HGB CONC 31.8 g/dL (32.0-36.0); MONOCYTES % (AUTO) 6.7 % (3.0-13.0); NEUTROPHILS % (AUTO) 83.7 % (40.0-77.0); PLATELET COUNT (AUTO) 186 K/uL (130-400); RED BLOOD CELL COUNT(AUTO) 3.83 MIL/uL (4.50-6.20); WHITE BLOOD COUNT (AUTO) 13.7 K/uL (4.8-10.8)
[2022-09-15 16:08] LABS: CREATININE 1.3 mg/dL (0.5-1.5); POTASSIUM 3.6 mmol/L (3.5-5.1)
[2022-09-15 16:09] LABS: INR 0.95 (0.85-1.15); PROTHROMBIN TIME 11.1 SEC (9.6-11.6)
[2022-09-15 16:11] LABS: PARTIAL THROMBOPLASTIN TIME 29.9 SEC (26.3-35.5)
[2022-09-15 16:13] LABS: ALBUMIN 3.1 g/dL (3.5-5.0); TOTAL PROTEIN, SERUM 6.6 g/dL (6.0-8.3)
[2022-09-15] MEDS ORDERED: ONDANSETRON 4MG INJ IVP PRN (19:00)
[2022-09-15] MEDS ORDERED: ENOXAPARIN SODIUM 40 MG/0.4 ML SYRINGE SQ ONE (19:00)
[2022-09-15] MEDS: MORPHINE 2 MG SYG IVP PRN (21:48)
[2022-09-16] VITALS (7 sets, daily range): BP systolic 119–146; BP diastolic 51–72; PULSE 71–97; RESP 16–22; O2SAT 95
[2022-09-16] MEDS: MORPHINE 2 MG SYG IVP PRN (01:56)
[2022-09-16] MEDS: HYDROMORPHONE 0.5 MG SYG (0.5MG/0.5ML) IVP PRN ×4 (08:22→23:18)
[2022-09-17] VITALS (27 sets, daily range): BP systolic 102–152; BP diastolic 53–86; PULSE 64–99; RESP 16–19; O2SAT 96
[2022-09-17] MEDS: HYDROMORPHONE 0.5 MG SYG (0.5MG/0.5ML) IVP PRN ×3 (03:08→21:50)
[2022-09-17 09:04] LABS: HEMATOCRIT 32.1 % (42-54); MEAN CORPUSCULAR HEMOGLOBIN 28.5 pg (27.0-33.0); MEAN CORPUSCULAR HGB CONC 33.3 g/dL (32.0-36.0); MEAN CORPUSCULAR VOLUME 85.4 fL (79-99); RED BLOOD CELL COUNT(AUTO) 3.76 MIL/uL (4.50-6.20); RED CELL DISTRIBUTION WIDTH 15.6 % (11.0-15.5); WHITE BLOOD COUNT (AUTO) 12.7 K/uL (4.8-10.8)
[2022-09-17 09:23] LABS: ALBUMIN 2.4 g/dL (3.5-5.0); CREATININE 1.2 mg/dL (0.5-1.5); POTASSIUM 4.3 mmol/L (3.5-5.1)
[2022-09-17] MEDS ORDERED: LIDOCAINE PF 100MG/5ML (2%) SYRINGE 5ML ONE (17:29)
[2022-09-17] MEDS ORDERED: SUCCINYLCHOLINE CHLORIDE 20 MG/ML 10 ML VIAL ONE (17:29)
[2022-09-17] MEDS ORDERED: PROPOFOL 10 MG/ML 20ML VIAL IV ONE (17:29)
[2022-09-17] MEDS ORDERED: ROCURONIUM 10MG/1ML SYR 10 MG/ML ML ONE (17:30)
[2022-09-17] MEDS ORDERED: FENTANYL CITRATE PF 50 MCG/1 ML 2ML VIAL ONE (17:30)
[2022-09-17] MEDS ORDERED: MIDAZOLAM HCL 1 MG/ML 2ML VIAL ONE (17:30)
[2022-09-17] MEDS ORDERED: PHENYLEPHRINE HCL 10 MG/ML 1ML VIAL IV ONE (17:50)
[2022-09-17] MEDS ORDERED: CEFAZOLIN SODIUM 2 GM VIAL IVPB ONE (18:05)
[2022-09-17] MEDS ORDERED: GLYCOPYRROLATE 1 MG/5 ML SYRINGE ONE (19:13)
[2022-09-17] MEDS ORDERED: NEOSTIGMINE 5MG/5ML SYR IV ONE (19:13)
[2022-09-17] MEDS ORDERED: MEPERIDINE-PF 25 MG/ML SYG ONE (19:51)
[2022-09-17] MEDS ORDERED: MORPHINE 4 MG SYG IVP PRN (21:30)
[2022-09-18] VITALS (13 sets, daily range): BP systolic 103–155; BP diastolic 52–85; PULSE 62–109; RESP 18–21; O2SAT 96
[2022-09-18] MEDS: CEFAZOLIN SODIUM 2 GM VIAL IVPB SCH ×3 (01:21→18:00)
[2022-09-18] MEDS: HYDROMORPHONE 0.5 MG SYG (0.5MG/0.5ML) IVP PRN ×4 (01:22→12:30)
[2022-09-18] MEDS: ENOXAPARIN SODIUM 40 MG/0.4 ML SYRINGE SQ SCH (08:42)
[2022-09-18] MEDS ORDERED: HYDROMORPHONE 0.5 MG SYG (0.5MG/0.5ML) IVP PRN (19:00)
[2022-09-18] MEDS ORDERED: HYDROCODONE/ACETAMINOPHEN 5/325 MG TAB PO PRN ×2 (19:00)
[2022-09-19] MEDS: CEFAZOLIN SODIUM 2 GM VIAL IVPB SCH ×3 (01:49→18:00)
[2022-09-19 05:00] VITALS: BP 156/68; PULSE 99; RESP 20
[2022-09-19 05:25] LABS: HEMATOCRIT 26.6 % (42-54); MEAN CORPUSCULAR HEMOGLOBIN 27.9 pg (27.0-33.0); MEAN CORPUSCULAR HGB CONC 33.1 g/dL (32.0-36.0); MEAN CORPUSCULAR VOLUME 84.4 fL (79-99); RED BLOOD CELL COUNT(AUTO) 3.15 MIL/uL (4.50-6.20); RED CELL DISTRIBUTION WIDTH 15.3 % (11.0-15.5); WHITE BLOOD COUNT (AUTO) 13.2 K/uL (4.8-10.8)
[2022-09-19 05:39] LABS: ALBUMIN 2.1 g/dL (3.5-5.0); POTASSIUM 3.9 mmol/L (3.5-5.1); TOTAL PROTEIN, SERUM 5.9 g/dL (6.0-8.3)
[2022-09-19 07:50] VITALS: O2SAT 100
[2022-09-19 08:00] VITALS: BP 153/69; PULSE 90; RESP 18
[2022-09-19] MEDS: ENOXAPARIN SODIUM 40 MG/0.4 ML SYRINGE SQ SCH (09:06)
[2022-09-19 11:23] VITALS: BP 114/52; PULSE 51; RESP 19
[2022-09-19 15:38] VITALS: BP 128/74; PULSE 95; RESP 18
[2022-09-19] MEDS ORDERED: HALO0.5T PO (17:23)
[2022-09-19] MEDS ORDERED: HYOS-14 PO (17:23)
[2022-09-19] MEDS ORDERED: TAMS-1 PO (17:23)
[2022-09-19] MEDS ORDERED: ALBU2.5V2 IH (17:23)
[2022-09-19] MEDS ORDERED: METO-391 PO (17:23)
[2022-09-19] MEDS ORDERED: ASPI-1197 PO (17:23)
[2022-09-19] MEDS ORDERED: FURO40TA7 PO (17:23)
[2022-09-19] MEDS ORDERED: SENN-308 PO (17:23)
[2022-09-19] MEDS ORDERED: MELO-108 PO (17:23)
[2022-09-19] MEDS ORDERED: ZINC57OI4 TP (17:23)
[2022-09-19] MEDS ORDERED: BISA10SU61 RC (17:23)
[2022-09-19] MEDS ORDERED: OXYC1TAB12 PO (17:23)
[2022-09-19] MEDS ORDERED: POTA-364 PO (17:23)
[2022-09-19] MEDS ORDERED: ACET650S14 RC (17:23)
[2022-09-19] MEDS ORDERED: PRAV80TA21 PO (17:23)
[2022-09-19] MEDS ORDERED: TRAZ150T79 PO (17:23)
== END 2022-09-19 19:27 | DRG 522 ==
LOC: EDH 11:09 → EDHIP 17:47 → 4AH 23:18
PROVIDERS: ADMIT Internal Medicine; ATTEND Internal Medicine
PROC: 0SRS0JA Replacement of Left Hip Joint, Femoral Surface with Synthetic Substitute, Uncemented, Open Approach (ICD-10-PCS; principal; 2022-09-19)
PROC: 3E0T3BZ Introduction of Anesthetic Agent into Peripheral Nerves and Plexi, Percutaneous Approach (ICD-10-PCS; 2022-09-19)
PROC: 3E0T33Z Introduction of Anti-inflammatory into Peripheral Nerves and Plexi, Percutaneous Approach (ICD-10-PCS; 2022-09-19)
DX: S72.092A Other fracture of head and neck of left femur, initial encounter for closed fracture (principal); F03.90 Unspecified dementia, unspecified severity, without behavioral disturbance, psychotic disturbance, mood disturbance, and anxiety; Z20.822 Contact with and (suspected) exposure to COVID-19; N40.0 Benign prostatic hyperplasia without lower urinary tract symptoms; N18.9 Chronic kidney disease, unspecified; E78.5 Hyperlipidemia, unspecified; I12.9 Hypertensive chronic kidney disease with stage 1 through stage 4 chronic kidney disease, or unspecified chronic kidney disease; W18.39XA Other fall on same level, initial encounter; Y93.89 Activity, other specified; Y92.89 Other specified places as the place of occurrence of the external cause; Y99.8 Other external cause status
CPT/HCPCS: 36415; 73502; 73503; 73552; 80053; 85025; 85027; 85610; 85730; 87635; 93005; 97039; C1776; G0378; J0330; J1170; J1650; J2001; J2175; J2250; J2270; J2371; J2405; J2704; J2710; J3010; J3490; J7030; J7120; A4649; A4930; A6219; A6223; J0690